=== PATIENT | female | born 1960 | race Caucasian/White ===

== ENCOUNTER → 2019-09-13 | Day surgery (SDC) | payer BC ==
[~2019-09-13] MED LIST: Lidocaine 1% with EPINEPHrine 1:100,000 20 ML MDV ONE
--- NOTE | 2019-09-13 20:03 | OR ---
DATE OF OPERATION: 09/13/2019 PREOPERATIVE DIAGNOSIS: LIPOMA, UPPER AND LOWER BACK. POSTOPERATIVE DIAGNOSIS: SEBACEOUS CYST OF THE UPPER AND LOWER BACK. SURGEON: James Nunes MD PROCEDURE: EXCISION OF A SEBACEOUS CYST IN THE UPPER AND LOWER BACK. ANESTHESIA: Local. SPECIMEN: Sebaceous cyst. FINDINGS: These initially felt like there might be mobile lipomas; however, they turned out to be a sebaceous cyst. INDICATIONS: This 59-year-old female has had a several-year history of increasing mass in the midback and lower back. The upper one she claims has been excised before and the lower one is new; however, they are tender for her to sit up against the chair, and they are increasing in size. The cyst in the upper back measured 1.5 cm in diameter. The cyst in the lower back measured 1 cm in diameter. There are no other surgical margins since the cyst was simply incised and a sac wall shelled out from the subcutaneous tissue, so the size of excision and the cyst is 1.5 cm for the upper and 1 cm from the lower. DESCRIPTION OF PROCEDURE: After adequate preparation, the upper and lower back was infiltrated with 1% Xylocaine with epinephrine. An incision was made and carried down to the cyst cavity. This was then bluntly dissected free from the subcutaneous space. The upper one was, however, really large, and I needed actually to incise the cyst and drain it, so that I could get around the rest of the capsule. This capsule went all the way down to the muscle layer. The same procedure was done for the lower cyst. An incision was made, and the cyst was excised by blunt dissection from the subcutaneous tissue. Both wounds were closed with 2-0 Vicryl for the deep layer and 4-0 Vicryl for the skin. BPB/MODL /[id number]
== END ==
LOC: CC.SDS 11:41
PROVIDERS: ATTEND Surgery
DX: L72.0 Epidermal cyst (principal); E78.5 Hyperlipidemia, unspecified; E55.9 Vitamin D deficiency, unspecified; I10 Essential (primary) hypertension; M19.90 Unspecified osteoarthritis, unspecified site; F17.210 Nicotine dependence, cigarettes, uncomplicated; Z88.6 Allergy status to analgesic agent; Z88.5 Allergy status to narcotic agent; Z79.899 Other long term (current) drug therapy